=== PATIENT | male | born 1990 | race Caucasian/White ===

== ENCOUNTER → 2016-08-14 | Outpatient (CLI) | payer BC ==
--- NOTE | 2016-08-14 15:53 | MAM ---
History: Bilateral breast tenderness. DATE OF SERVICE: 08/14/2016 Services provided: Bilateral full field digital male mammography. FINDINGS: Routine views are obtained. No prior study is available for comparison. Bilaterally the glandular tissue has developed and is minimally more prominent on the right. There is no mammographic evidence for malignancy. IMPRESSION: Benign gynecomastia. Recommendation: Clinical follow-up. Findings and recommendations were communicated to the patient. BI-RADS Category 2, benign. Electronically signed by: Katie Tinoco MD 08/14/2016 3:52 PM CDT
== END | disposition home or self-care (01) ==
LOC: MAMMO 08-13 14:16
PROVIDERS: ATTEND Surgery
DX: Z12.31 Encounter for screening mammogram for malignant neoplasm of breast (principal)